=== PATIENT | female | born 1970 | race African-American/Black ===

== ENCOUNTER 2017-07-28 20:05 | Inpatient (IN) | payer OTHER, MEDICARE ==
[~2017-07-28] VITALS: Ht 154.9 cm; Wt 97.3 kg
[2017-07-28 20:15] VITALS: BP 143/63; PULSE 66; RESP 16; TEMP 97.8; O2SAT 99
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
[2017-07-28] MEDS ORDERED: ACETAMINOPHEN/HYDROcodone 325 MG/5 MG TAB PO PRN (20:30)
[2017-07-28] MEDS ORDERED: MAGNESIUM HYDROXIDE SUSP 30 ML CUP PO PRN (20:30)
[2017-07-28] MEDS ORDERED: MISCELLANEOUS NURSING INFORMATION XX SCH (20:30)
[2017-07-28] MEDS ORDERED: CHLORHEXIDINE GLUCONATE 2 % 1 PACK (2 CLOTHS) TOP PRN (20:30)
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
[2017-07-28] MEDS: ACETAMINOPHEN/HYDROcodone 325 MG/5 MG TAB PO PRN (21:52)
[2017-07-28] MEDS: levETIRAcetam 500 MG TAB PO SCH ×2 (21:53→22:19)
[2017-07-28] MEDS: DOCUSATE SODIUM 100 MG CAP PO SCH (21:53)
[2017-07-28] MEDS ORDERED: CLOP75TA PO (22:16)
[2017-07-28] MEDS ORDERED: PERA1TAB PO (22:16)
[2017-07-28] MEDS ORDERED: ATOR40TA16 PO (22:16)
[2017-07-28] MEDS ORDERED: LEVE10003 PO ×2 (22:16)
[2017-07-28] MEDS ORDERED: DILT120C9 PO (22:16)
[2017-07-28] MEDS ORDERED: LAMO200T PO (22:16)
[2017-07-28] MEDS ORDERED: METO50TA PO (22:16)
[2017-07-28] MEDS ORDERED: HYDR-3801 PO (22:16)
[2017-07-28] MEDS ORDERED: XANA2TAB2 PO (22:17)
[2017-07-28 22:20] VITALS: PULSE 63; RESP 16; O2SAT 100
[2017-07-28 22:40] VITALS: BP 130/72; PULSE 65; RESP 17; TEMP 98; O2SAT 96
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
[2017-07-29] VITALS (15 sets, daily range): BP systolic 120–161; BP diastolic 72–96; PULSE 61–86; RESP 13–26; TEMP 97.3–98.8; O2SAT 96–100
[2017-07-29] MEDS: CHLORHEXIDINE GLUCONATE 2 % 1 PACK (2 CLOTHS) TOP SCH (03:37)
[2017-07-29] MEDS: ACETAMINOPHEN/HYDROcodone 325 MG/5 MG TAB PO PRN ×5 (04:00→23:51)
[2017-07-29 06:29] LABS: AUTOMATED NEUTROPHIL # 7.4 TH/MM3 (1.8-7.7); BASOPHIL % 0.2 % (0.0-2.0); EOSINOPHIL # 0.1 TH/MM3 (0-0.4); EOSINOPHIL % 0.9 % (0.0-4.0); HEMATOCRIT 33.9 % (35.0-46.0); LYMPH % 25.1 % (9.0-44.0); LYMPHOCYTE # 2.7 TH/MM3 (1.0-4.8); MEAN CELL VOLUME 81.1 FL (80.0-100.0); MEAN CORPUSCULAR HEMOGLOBIN 26.3 PG (27.0-34.0); MEAN CORPUSCULAR HGB CONC 32.4 % (32.0-36.0); MEAN PLATELET VOLUME 7.4 FL (7.0-11.0); MONO % 5.6 % (0.0-8.0); MONOCYTE # 0.6 TH/MM3 (0-0.9); NEUT % 68.2 % (16.0-70.0); PLATELET COUNT 336 TH/MM3 (150-450); RED BLOOD COUNT 4.18 MIL/MM3 (4.00-5.30); RED CELL DISTRIBUTION WIDTH 15.8 % (11.6-17.2); WHITE BLOOD COUNT 10.9 TH/MM3 (4.0-11.0)
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
[2017-07-29 07:03] LABS: BICARBONATE 28.3 MEQ/L (21.0-32.0); CALCIUM 8.4 MG/DL (8.5-10.1); CREATININE 0.58 MG/DL (0.50-1.00)
[2017-07-29] MEDS ORDERED: POTASSIUM CHLORIDE 20 MEQ CONTROLLED RELEASE TAB PO ONE (08:00)
[2017-07-29] MEDS: DOCUSATE SODIUM 100 MG CAP PO SCH ×2 (08:53→21:39)
[2017-07-29] MEDS: FAMOTIDINE 20 MG TAB PO SCH ×2 (08:54→21:39)
[2017-07-29] MEDS ORDERED: DILTIAZEM 240 MG PO SCH (09:15)
[2017-07-29] MEDS: hydrALAZINE HCL 25 MG TAB PO SCH (09:34)
[2017-07-29] MEDS: METOPROLOL TARTRATE 50 MG TAB PO SCH (09:34)
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
[2017-07-29] MEDS: lamoTRIgine 100 MG TAB PO SCH ×2 (10:58→21:38)
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
[2017-07-29] MEDS: levETIRAcetam 500 MG TAB PO SCH ×2 (12:53→21:39)
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
[2017-07-29] MEDS: ONDANSETRON HCL 4 MG/2 ML VIAL IV PUSH PRN ×2 (14:28→19:46)
[2017-07-29] MEDS ORDERED: DILTIAZEM 120 MG PO SCH (16:30)
[2017-07-29] MEDS ORDERED: PERAMPANEL 2 MG PO SCH ×2 (21:00)
[2017-07-29] MEDS: ATORVASTATIN 40 MG TAB PO SCH (21:39)
[2017-07-30] VITALS (9 sets, daily range): BP systolic 120–133; BP diastolic 59–79; PULSE 63–76; RESP 16–22; TEMP 97.4–98.3; O2SAT 92–100
[2017-07-30] MEDS: CHLORHEXIDINE GLUCONATE 2 % 1 PACK (2 CLOTHS) TOP SCH ×2 (01:02→20:24)
[2017-07-30 04:48] LABS: ALBUMIN 3.2 GM/DL (3.4-5.0); AST (GOT) 14 U/L (15-37); BICARBONATE 29.1 MEQ/L (21.0-32.0); BLOOD UREA NITROGEN 16 MG/DL (7-18); CHLORIDE 107 MEQ/L (98-107); CREATININE 0.75 MG/DL (0.50-1.00); GLOMERULAR FILTRATION RATE 100 ML/MIN (>89); GLUCOSE,RANDOM 103 MG/DL (74-106); SODIUM (NA) 143 MEQ/L (136-145)
[2017-07-30 04:49] LABS: ALT (GPT) 15 U/L (10-53)
[2017-07-30 04:51] LABS: ALKALINE PHOSPHATASE 62 U/L (45-117); TOTAL BILIRUBIN ADULT 0.2 MG/DL (0.2-1.0)
[2017-07-30 04:52] LABS: BASOPHIL % 0.5 % (0.0-2.0); EOSINOPHIL # 0.2 TH/MM3 (0-0.4); EOSINOPHIL % 3.8 % (0.0-4.0); HEMATOCRIT 32.4 % (35.0-46.0); HEMOGLOBIN 10.5 GM/DL (11.6-15.3); LYMPH % 61.7 % (9.0-44.0); LYMPHOCYTE # 2.4 TH/MM3 (1.0-4.8); MEAN CELL VOLUME 81.3 FL (80.0-100.0); MEAN CORPUSCULAR HEMOGLOBIN 26.4 PG (27.0-34.0); MEAN CORPUSCULAR HGB CONC 32.5 % (32.0-36.0); MEAN PLATELET VOLUME 7.5 FL (7.0-11.0); MONO % 9.4 % (0.0-8.0); MONOCYTE # 0.4 TH/MM3 (0-0.9); NEUT % 24.6 % (16.0-70.0); PLATELET COUNT 299 TH/MM3 (150-450); RED BLOOD COUNT 3.99 MIL/MM3 (4.00-5.30); RED CELL DISTRIBUTION WIDTH 15.9 % (11.6-17.2); WHITE BLOOD COUNT 3.9 TH/MM3 (4.0-11.0)
[2017-07-30] MEDS: ONDANSETRON HCL 4 MG/2 ML VIAL IV PUSH PRN ×2 (06:07→14:10)
[2017-07-30] MEDS: ACETAMINOPHEN/HYDROcodone 325 MG/5 MG TAB PO PRN ×4 (06:07→23:05)
[2017-07-30] MEDS: DILTIAZEM-CD 240 MG CAP ER PO SCH (09:43)
[2017-07-30] MEDS: FAMOTIDINE 20 MG TAB PO SCH ×2 (09:43→20:21)
[2017-07-30] MEDS: hydrALAZINE HCL 25 MG TAB PO SCH (09:44)
[2017-07-30] MEDS: levETIRAcetam 500 MG TAB PO SCH ×2 (09:44→20:21)
[2017-07-30] MEDS: lamoTRIgine 100 MG TAB PO SCH ×2 (09:44→20:23)
[2017-07-30] MEDS: DOCUSATE SODIUM 100 MG CAP PO SCH ×2 (09:44→20:22)
[2017-07-30] MEDS: BACITRACIN TOP OINT 15 GM TUBE TOPICAL SCH ×2 (09:45→20:24)
[2017-07-30] MEDS: METOPROLOL TARTRATE 50 MG TAB PO SCH (09:45)
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
[2017-07-30] MEDS: GABAPENTIN 300 MG CAP PO SCH (17:58)
[2017-07-30] MEDS: ATORVASTATIN 40 MG TAB PO SCH (20:22)
[2017-07-30] MEDS ORDERED: ACETAMIN 325 MG/BUTALBITAL 50 MG/CAFFEINE 40 MG TAB PO ONE (21:30)
--- NOTE | 2017-07-30 21:52 | RADRPT ---
EXAM DATE/TIME: 07/30/2017 21:38 [facility] COMPARISON: CT BRAIN W/O CONTRAST, July 29, 2017, 4:14. INDICATIONS : Cephalgia. RADIATION DOSE: 52.06 CTDIvol (mGy) MEDICAL HISTORY : Hypertension. Cerebrovascular disease. SURGICAL HISTORY : None. ENCOUNTER: Initial ACUITY: 1 day PAIN SCALE: 10/10 LOCATION: cranial TECHNIQUE: Multiple contiguous axial images were obtained of the head. Using automated exposure control and adj ustment of the mA and/or kV according to patient size, radiation dose was kept as low as reasonably a chievable to obtain optimal diagnostic quality images. DICOM format image data is available electro nically for review and comparison. FINDINGS: Previously described subarachnoid blood is although resolved. There are no extra-axial fluid collect ions appreciated. There is no parenchymal hemorrhage. Ventricular size is appropriate Posterior fossa is unremarkable There is no skull fracture. CONCLUSION: Interval improvement. Subarachnoid hemorrhage has all resolved. Jaime Badillo MD FACR on July 30, 2017 at 21:48 Board Certified Radiologist. This report was verified electronically.
[2017-07-31] VITALS (7 sets, daily range): BP systolic 111–151; BP diastolic 66–78; PULSE 58–75; RESP 16–22; TEMP 97.8–98.6; O2SAT 96–100
[2017-07-31] MEDS: ACETAMINOPHEN/HYDROcodone 325 MG/5 MG TAB PO PRN ×3 (04:46→16:36)
[2017-07-31] MEDS: DILTIAZEM-CD 240 MG CAP ER PO SCH (09:20)
[2017-07-31] MEDS: METOPROLOL TARTRATE 50 MG TAB PO SCH (09:20)
[2017-07-31] MEDS: hydrALAZINE HCL 25 MG TAB PO SCH (09:20)
[2017-07-31] MEDS: FAMOTIDINE 20 MG TAB PO SCH ×2 (09:20→21:19)
[2017-07-31] MEDS: DOCUSATE SODIUM 100 MG CAP PO SCH ×2 (09:20→21:19)
[2017-07-31] MEDS: GABAPENTIN 300 MG CAP PO SCH ×3 (09:20→16:36)
[2017-07-31] MEDS: levETIRAcetam 500 MG TAB PO SCH ×2 (09:24→21:19)
[2017-07-31] MEDS: BACITRACIN TOP OINT 15 GM TUBE TOPICAL SCH ×2 (09:24→21:19)
[2017-07-31] MEDS: lamoTRIgine 100 MG TAB PO SCH ×2 (09:24→21:19)
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
[2017-07-31] MEDS: SODIUM CHLORIDE 0.9% FLUSH 10 ML FLUSH IV FLUSH PRN ×2 (11:06→16:36)
[2017-07-31] MEDS: ONDANSETRON HCL 4 MG/2 ML VIAL IV PUSH PRN ×3 (11:06→16:37)
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
[2017-07-31] MEDS ORDERED: LORazepam 2 MG/ML VIAL ONE (13:07)
[2017-07-31] MEDS ORDERED: LORazepam 2 MG/ML VIAL IV ONE (13:15)
--- NOTE | 2017-07-31 14:15 | HHI.PR ---
Subjective Remarks consult on paper in front of chart she had sz today and appears postictal now sticks out tong and wiggle feet to pinch she holds r arm up in air when i raise it pupil = eeg nl running right now imp unclear if there could also be a pseudosz component or not i dw mom and she will check old video eeg regardless she has daily seizures so this is not unusual she is to go to [facility] wednesday and i recommend admitting team makes sure she gets there just got 3 mg ativan now would not give that much in future as she yissel daily sz at home and does not get that dose there we just started gabapentin 300 tid yest dneeds to be given own fycompa from home i dw nursing and mother Objective Vital Signs Date Time Temp Pulse Resp B/P (MAP) Pulse Ox O2 Delivery O2 Flow Rate FiO2 07/31/17 12:55 97.8 75 22 151/77 (101) 96 07/31/17 12:48 Nasal Cannula 2.00 07/31/17 08:00 97.8 67 16 138/73 (94) 100 07/31/17 04:00 97.9 58 18 130/71 (90) 99 07/31/17 00:00 98.1 61 18 130/77 (94) 96 07/30/17 20:15 Room Air 07/30/17 20:00 98.1 69 18 128/59 (82) 96 07/30/17 16:00 97.4 63 16 120/64 (82) 97 I/O 07/30/17 07/30/17 07/30/17 07/31/17 07/31/17 07/31/17 07:00 15:00 23:00 07:00 15:00 23:00 Intake Total 680 ml 240 ml 240 ml Balance 680 ml 240 ml 240 ml Intake Oral 680 ml 240 ml 240 ml # Voids 2 3 1 # Bowel Movements 0 0 0 Result Diagram: 07/30/17 0325 07/30/17 0325 Satya Hernandez MD Jul 31, 2017 14:15
[2017-07-31] MEDS: ATORVASTATIN 40 MG TAB PO SCH (21:19)
--- NOTE | 2017-07-31 23:07 | MG ---
cc: Satya Hernandez MD, David J MD EEG NUMBER [id number] INDICATIONS: Hyperventilation not performed. History of seizures MEDICATIONS: Lamictal, Neurontin, Keppra. INTERPRETATION: The recording shows a lot of beta rhythms. I believe she is status post Ativan to start the recording. Some 7 Hz diffuse slowing is noted. Muscle artifact is seen. A 7-8 Hz, symmetric 60 microvolt posterior rhythm is seen. I do not see any epileptiform or seizure activity. No hemisphere asymmetries are noted. Photic stimulation was performed without significant posterior driving. Some what appeared to be sleep spindles are noted, which are synchronous and symmetric. She was noted to snore. IMPRESSION: I do not see any seizure activity or hemispherical asymmetry throughout this recording. Some beta rhythms are noted, likely due to the medication effect. Satya Hernandez MD DJElena//jazmin , 10:48 PM , 10:58 PM
[2017-08-01] VITALS: BP 100/58; RESP 16; TEMP 98.5; O2SAT 99
[2017-08-01 04:00] VITALS: BP 127/60; PULSE 57; RESP 18; TEMP 98; O2SAT 100
[2017-08-01] MEDS: CHLORHEXIDINE GLUCONATE 2 % 1 PACK (2 CLOTHS) TOP SCH (04:00)
[2017-08-01] MEDS: ACETAMINOPHEN/HYDROcodone 325 MG/5 MG TAB PO PRN ×2 (06:33→10:13)
[2017-08-01] MEDS: ONDANSETRON HCL 4 MG/2 ML VIAL IV PUSH PRN ×2 (06:33→10:16)
[2017-08-01] MEDS: SODIUM CHLORIDE 0.9% FLUSH 10 ML FLUSH IV FLUSH PRN ×2 (06:33→10:16)
[2017-08-01 08:00] VITALS: BP 119/73; PULSE 64; RESP 18; TEMP 97.8; O2SAT 100
[2017-08-01] MEDS: BACITRACIN TOP OINT 15 GM TUBE TOPICAL SCH (09:00)
[2017-08-01] MEDS: METOPROLOL TARTRATE 50 MG TAB PO SCH (09:11)
[2017-08-01] MEDS: DILTIAZEM-CD 240 MG CAP ER PO SCH (09:11)
[2017-08-01] MEDS: hydrALAZINE HCL 25 MG TAB PO SCH (09:11)
[2017-08-01] MEDS: FAMOTIDINE 20 MG TAB PO SCH (09:11)
[2017-08-01] MEDS: lamoTRIgine 100 MG TAB PO SCH (09:11)
[2017-08-01] MEDS: DOCUSATE SODIUM 100 MG CAP PO SCH (09:11)
[2017-08-01] MEDS: levETIRAcetam 500 MG TAB PO SCH (09:11)
[2017-08-01] MEDS: GABAPENTIN 300 MG CAP PO SCH (09:11)
--- NOTE | 2017-08-01 09:56 | HHI.PR ---
Subjective Remarks consult on paper in front of chart she had sz today and appears postictal now sticks out tong and wiggle feet to pinch she holds r arm up in air when i raise it pupil = eeg nl running right now imp unclear if there could also be a pseudosz component or not i dw mom and she will check old video eeg regardless she has daily seizures so this is not unusual she is to go to [facility] wednesday and i recommend admitting team makes sure she gets there just got 3 mg ativan now would not give that much in future as she yissel daily sz at home and does not get that dose there we just started gabapentin 300 tid yest dneeds to be given own fycompa from home i dw nursing and mother 08/01/17 no more sz Objective Vital Signs Date Time Temp Pulse Resp B/P (MAP) Pulse Ox O2 Delivery O2 Flow Rate FiO2 08/01/17 04:00 98.0 57 18 127/60 (82) 100 08/01/17 00:00 98.5 16 100/58 (72) 99 07/31/17 21:21 Room Air 07/31/17 20:00 98.6 60 17 148/78 (101) 100 07/31/17 16:00 98.0 62 16 129/69 (89) 99 07/31/17 12:55 97.8 75 22 151/77 (101) 96 07/31/17 12:48 Nasal Cannula 2.00 07/31/17 12:00 97.8 58 16 111/66 (81) 99 I/O 07/31/17 07/31/17 07/31/17 08/01/17 08/01/17 08/01/17 07:00 15:00 23:00 07:00 15:00 23:00 Intake Total 240 ml 600 ml 480 ml Balance 240 ml 600 ml 480 ml Intake Oral 240 ml 600 ml 480 ml # Voids 1 4 1 # Bowel Movements 0 Result Diagram: 07/30/17 0325 07/30/17 0325 Objective Remarks awake alert moves all nad Assessment and Plan Assessment and Plan imp ok dc by me on neurontin i would take 600 tid fu [facility] tomorrow Satya Hernandez MD Aug 01, 2017 09:56
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
== END 2017-08-01 11:51 | disposition home or self-care (01) | DRG 86 ==
LOC: NEPC 20:05 → NEDA 21:05 → NEPHCDU 22:30 → N03A 07-29 01:02 → N06B 07-30 12:04
PROVIDERS: ADMIT Surgery; ATTEND Surgery
PROC: 30233R1 Transfusion of Nonautologous Platelets into Peripheral Vein, Percutaneous Approach (ICD-10-PCS; principal; 2017-07-28)
DX: S06.6X0A Traumatic subarachnoid hemorrhage without loss of consciousness, initial encounter (principal); I69.351 Hemiplegia and hemiparesis following cerebral infarction affecting right dominant side; I10 Essential (primary) hypertension; G40.409 Other generalized epilepsy and epileptic syndromes, not intractable, without status epilepticus; D64.9 Anemia, unspecified; E87.6 Hypokalemia; E78.00 Pure hypercholesterolemia, unspecified; G93.9 Disorder of brain, unspecified; R40.2410 Glasgow coma scale score 13-15, unspecified time; V89.2XXA Person injured in unspecified motor-vehicle accident, traffic, initial encounter; Y92.410 Unspecified street and highway as the place of occurrence of the external cause; Z79.01 Long term (current) use of anticoagulants; Z79.82 Long term (current) use of aspirin
CPT/HCPCS: 36430; 70450; 73090; 76937; 80048; 80053; 85025; 86850; 86900; 86901; 87641; 95819; J2060; J2405; P9035